=== PATIENT | male | born 1950 | race African-American/Black ===

== ENCOUNTER 2016-09-12 12:56 | Observation (INO) | payer MEDICARE, OTHER ==
[2016-09-12] VITALS (7 sets, daily range): BP systolic 109–180; BP diastolic 67–88; PULSE 66–94; RESP 16–21; TEMP 97.9–98.5; O2SAT 94–97
[~2016-09-12] VITALS: Ht 170.2 cm; Wt 87.5 kg
--- NOTE | 2016-09-12 13:22 | PD ---
HPI Chief Complaint: Chest Pain Time Seen by Provider: 13:20 Travel History International Travel<30 days: No Contact w/Intl Traveler<30days: No Traveled to known affect area: No History of Present Illness HPI 65-year-old male came to the emergency room with history of epigastric pain radiating to his back. Patient seems extremely uncomfortable. He says this happened earlier. He has history of pancreatitis and is on medication for that. He was slightly tachycardic in triage. A 12-lead EKG that was done in triage looked abnormal and hence he was brought in emergently. Blood pressure is within acceptable range. No aggravating or relieving factors identified. He is just uncomfortable constantly. [facility] Past Medical History Narrative Medical List of his past medical, surgical, social and family history is reviewed from the nursing note. Social History Tobacco Use: No Allergies-Medications (Allergen,Severity, Reaction): Coded Allergies: Penicillin (Verified Allergy, Severe, 09/12/16) Comments List of his allergies reviewed from the nursing note. Reported Meds & Prescriptions Reported Meds & Active Scripts Active Reported Creon (Pancrelipase) Unknown Strength Cap Unknown Dose PO TIDPC Narrative Medication List of his home medications reviewed from the nursing note. Review of Systems Except as stated in HPI: all other systems reviewed are Neg Physical Exam Narrative GENERAL: Awake, alert, anxious, significant distress SKIN: Focused skin assessment warm/dry. HEAD: Atraumatic. Normocephalic. EYES: Pupils equal and round. No scleral icterus. No injection or drainage. ENT: No nasal bleeding or discharge. Mucous membranes pink and moist. NECK: Trachea midline. No JVD. CARDIOVASCULAR: Regular rate and rhythm. No murmur appreciated. RESPIRATORY: No accessory muscle use. Clear to auscultation. Breath sounds equal bilaterally. GASTROINTESTINAL: Abdomen soft, non-tender, nondistended. Hepatic and splenic margins not palpable. MUSCULOSKELETAL: No obvious deformities. No clubbing. No cyanosis. No edema. NEUROLOGICAL: Awake and alert. No obvious cranial nerve deficits. Motor grossly within normal limits. Normal speech. PSYCHIATRIC: Appropriate mood and affect; insight and judgment normal. Data Data Last Documented VS Orders Complete Blood Count With Diff (09/12/16 13:03) Chest, Single Ap (09/12/16 13:03) Morphine Inj (Morphine Inj) (09/12/16 13:30) Ondansetron Inj (Zofran Inj) (09/12/16 13:30) Cta Thor Abd Aorta W Iv C W3d (09/12/16 ) Lipase (09/12/16 13:29) Comprehensive Metabolic Panel (09/12/16 13:29) Ckmb (Isoenzyme) Profile (09/12/16 13:40) Troponin I (09/12/16 13:40) CKMB (09/12/16 13:40) CKMB% (09/12/16 13:40) Electrocardiogram (09/12/16 13:08) Iohexol 350 Inj (Omnipaque 350 Inj) (09/12/16 14:52) Labs MDM Medical Decision Making Medical Screen Exam Complete: Yes Emergency Medical Condition: Yes Medical Record Reviewed: Yes Interpretation(s) Twelve-lead EKG was reviewed by me. Normal sinus rhythm, left axis deviation, questionable J-point elevation in V1 and V2, tachycardia. Heart rate of 102 bpm. Differential Diagnosis ACS, acute pancreatitis, aortic dissection Narrative Course 2:54 PM given the pain out of proportion I decided to get a CT aortogram on this patient. I waiting for the CT to be done and resulted. All the blood test results came back otherwise and they're within acceptable range. Patient was given morphine for pain. 3:[address] scan is within normal limit not showing any dissection. Given his chest pain and normal lipase I'll admit him to the chest pain center to be ruled out. Procedures EKG Prior to Arrival: No Diagnosis Primary Impression: Chest pain Qualified Code: R07.9 - Chest pain, unspecified type Admitting Information Admitting Physician Requests: Observation Scripts Naproxen 500 Mg [id number] Mg PO BID 5 Days Ref 0 Prov:Melita Rodriguez 09/13/16 Mary Cronin MD Sep 12, 2016 13:22 Lymphocytes (%) (Auto) 30.4 % Monocytes (%) (Auto) 10.5 % Eosinophils (%) (Auto) 1.8 % Basophils (%) (Auto) 0.2 % Neutrophils # (Auto) 4.0 TH/MM3 Lymphocytes # (Auto) 2.1 TH/MM3 Monocytes # (Auto) 0.7 TH/MM3 Eosinophils # (Auto) 0.1 TH/MM3 Basophils # (Auto) 0.0 TH/MM3 CBC Comment DIFF FINAL Differential Comment Sodium Level 140 MEQ/L Potassium Level 3.9 MEQ/L Chloride Level 108 MEQ/L Carbon Dioxide Level 23.0 MEQ/L Anion Gap 9 MEQ/L Blood Urea Nitrogen 9 MG/DL Creatinine 1.28 MG/DL Estimat Glomerular Filtration 69 ML/MIN Rate Random Glucose 88 MG/DL Calcium Level 8.8 MG/DL Total Bilirubin 0.8 MG/DL Aspartate Amino Transf 21 U/L (AST/SGOT) Alanine Aminotransferase 35 U/L (ALT/SGPT) Alkaline Phosphatase 98 U/L Total Creatine Kinase 103 U/L Creatine Kinase MB 0.6 NG/ML Troponin I LESS THAN 0.02 NG/ML Total Protein 8.0 GM/DL Albumin 4.0 GM/DL Lipase 214 U/L [facility] Medical Decision Making Medical Screen Exam Complete: Yes Emergency Medical Condition: Yes Medical Record Reviewed: Yes Interpretation(s) Twelve-lead EKG was reviewed by me. Normal sinus rhythm, left axis deviation, questionable J-point elevation in V1 and V2, tachycardia. Heart rate of 102 bpm. Differential Diagnosis ACS, acute pancreatitis, aortic dissection Narrative Course 2:54 PM given the pain out of proportion I decided to get a CT aortogram on this patient. I waiting for the CT to be done and resulted. All the blood test results came back otherwise and they're within acceptable range. Patient was given morphine for pain. 3:[address] scan is within normal limit not showing any dissection. Given his chest pain and normal lipase I'll admit him to the chest pain center to be ruled out. Procedures EKG Prior to Arrival: No Diagnosis Primary Impression: Chest pain Qualified Code: R07.9 - Chest pain, unspecified type Admitting Information Admitting Physician Requests: Observation Mary Cronin MD Sep 12, 2016 13:22
[2016-09-12] MEDS ORDERED: CREO3000 PO (13:28)
[2016-09-12] MEDS ORDERED: ONDANSETRON HCL 4 MG/2 ML VIAL IV PUSH ONE (13:30)
[2016-09-12] MEDS ORDERED: MORPHINE SULFATE 8 MG/ML INJ IV PUSH ONE (13:30)
--- NOTE | 2016-09-12 13:30 | RADRPT ---
EXAM DATE/TIME: 09/12/2016 13:24 [facility] COMPARISON: No previous studies available for comparison. INDICATIONS : Chest pain. MEDICAL HISTORY : None. SURGICAL HISTORY : None. ENCOUNTER: Initial ACUITY: 1 day PAIN SCORE: 10/10 LOCATION: Bilateral chest FINDINGS: A single view of the chest demonstrates the lungs to be symmetrically aerated without evidence of mas s, infiltrate or effusion. The cardiomediastinal contours are unremarkable. Osseous structures are intact. Evidence of previous surgery to the cervical spine. CONCLUSION: Normal examination for a patient of this age. Regulo Chavarria MD on September 12, 2016 at 13:27 Board Certified Radiologist. This report was verified electronically.
[2016-09-12 13:51] LABS: BASOPHIL % 0.2 % (0.0-2.0); EOSINOPHIL # 0.1 TH/MM3 (0-0.4); EOSINOPHIL % 1.8 % (0.0-4.0); HEMATOCRIT 48.9 % (39.0-51.0); HEMO FLAGS DIFF FINAL; LYMPH % 30.4 % (9.0-44.0); LYMPHOCYTE # 2.1 TH/MM3 (1.0-4.8); MEAN CELL VOLUME 81.7 FL (80.0-100.0); MEAN CORPUSCULAR HGB CONC 33.1 % (32.0-36.0); MONO % 10.5 % (0.0-8.0); NEUT % 57.1 % (16.0-70.0); PLATELET COUNT 217 TH/MM3 (150-450); RED BLOOD COUNT 5.99 MIL/MM3 (4.50-5.90); RED CELL DISTRIBUTION WIDTH 15.7 % (11.6-17.2)
[2016-09-12 14:06] LABS: ALT (GPT) 35 U/L (12-78); ANION GAP 9 MEQ/L (5-15); AST (GOT) 21 U/L (15-37); BLOOD UREA NITROGEN 9 MG/DL (7-18); CHLORIDE 108 MEQ/L (98-107); GLOMERULAR FILTRATION RATE 69 ML/MIN (>89); POTASSIUM 3.9 MEQ/L (3.5-5.1); SODIUM (NA) 140 MEQ/L (136-145)
[2016-09-12 14:09] LABS: ALKALINE PHOSPHATASE 98 U/L (45-117); CREATINE KINASE 103 U/L (39-308); TOTAL BILIRUBIN ADULT 0.8 MG/DL (0.2-1.0)
[2016-09-12 14:22] LABS: CKMB 0.6 NG/ML (0.5-3.6)
[2016-09-12] MEDS ORDERED: IOHEXOL 350 MG/ML 10 ML VIAL (for RAD DIAG) IV ONE (14:52)
--- NOTE | 2016-09-12 15:43 | RADRPT ---
EXAM DATE/TIME: 09/12/2016 14:16 [facility] COMPARISON: No previous studies available for comparison. INDICATIONS : Substernal chest pain and dizziness today. IV CONTRAST: 97 cc Omnipaque 350 (iohexol) IV RADIATION DOSE: 8.7 CTDIvol (mGy) MEDICAL HISTORY : Pancreatitis. SURGICAL HISTORY : back surgery ENCOUNTER: Initial ACUITY: 1 day PAIN SCALE: 6/10 LOCATION: substernal chest TECHNIQUE: Volumetric scanning was performed using a multi-row detector CT scanner. The data was post processed with a variety of visualization algorithms including full volume maximum intensity projection, multi -planar sliding thin slab reformation, curved planar reformation, and surface rendering techniques. Using automated exposure control and adjustment of the mA and/or kV according to patient size, radiat ion dose was kept as low as reasonably achievable to obtain optimal diagnostic quality images. DICOM format image data is available electronically for review and comparison. FINDINGS: LUNGS: Ill-defined patchy groundglass opacities in the superior segment of the left lower lobe likely reflec t volume loss. No significant focal parenchymal abnormality. No significant pleural effusion or pneum othorax. MEDIASTINUM: No abnormally enlarged lymph nodes by CT criteria. No axillary or hilar abnormalities are identified. The heart is grossly unremarkable without significant pericardial effusion. Central pulmonary arteri es are patent. ABDOMEN: The liver and spleen are free of focal defects. The gallbladder and pancreas demonstrate no abnormali ty. The adrenal glands are normal. The kidneys demonstrate no evidence of solid renal mass or hydrone phrosis. Subcentimeter cystic lesion in the superior pole the left kidney is too small to characteriz e. No free fluid or abdominal masses are identified. No para-aortic adenopathy is seen. PELVIS: No evidence of free fluid or pelvic mass. No abnormally enlarged inguinal or retroperitoneal lymph no alfredo are present. The bladder is unremarkable. Prostate is nonspecifically enlarged. THORACIC AORTA: The thoracic aortic root is minimally ectatic measuring up to 3.6 cm in diameter with normal branchin g of the great vessels. The proximal arch vessels are patent. Descending thoracic aorta is normal in caliber measuring up to 2.7 cm. In caliber measuring up to 3.6 cm There is no evidence of aneurysm or dissection. ABDOMINAL AORTA: The abdominal aorta is nonaneurysmal without evidence for dissection. Mild distal aortic stenosis se condary to concentric mixed plaque. The renal arteries are patent bilaterally. The proximal celiac a nd superior mesenteric arteries are patent and normal in diameter. PELVIC VESSELS: The internal iliac and external iliac vessels are patent without aneurysm or stenosis. CONCLUSION: 1. No evidence for aortic aneurysm or dissection as questioned. 2. Ill-defined patchy groundglass opacities in the superior segment of the left lower lobe likely ref lect volume loss. 3. Essentially unremarkable CT examination of the chest, abdomen and pelvis. Geraldo Canas MD on September 12, 2016 at 15:02 Board Certified Radiologist. This report was verified electronically.
[2016-09-12] MEDS ORDERED: ASPIRIN 81 MG CHEW TAB CHEW ONE (16:00)
[2016-09-12] MEDS ORDERED: ONDANSETRON HCL 4 MG/2 ML VIAL IV PRN (16:30)
[2016-09-12] MEDS ORDERED: ACETAMINOPHEN 500 MG CPLT PO PRN (16:30)
[2016-09-12] MEDS ORDERED: SODIUM CHLORIDE 0.9% FLUSH 10 ML FLUSH IV FLUSH PRN (16:30)
[2016-09-12] MEDS ORDERED: NITROGLYCERIN 0.4 MG SL 25 TABS/BTL SL PRN (16:30)
--- NOTE | 2016-09-12 16:53 | HHI.HP ---
HPI Primary Care Physician Primary Care Physician in [place] Chief Complaint Chest pain History of Present Illness 65-year-old male history of chronic pancreatitis presents to emergency room for further evaluation of epigastric pain. Onset approximately 12 PM. While walking to kitchen he developed sudden epigastric pain with radiation to his right side into his back. Severity 10/10. Epigastric pain described as a pressure and pulling pain. Pain radiating to right side described as burning and radiation of pain to back was sharp. He lost consciousness and when he woke up his left hip was hurting. No dizziness prior to loss of consciousness. Epigastric pain persisted once he regained consciousness although not as severe. He called his nephew to bring him to the emergency room. No associated symptoms of nausea, vomiting, or diaphoresis. States it's hard to breathe but does not necessarily hurt to breathe. Twisting makes pain worse. Laying still makes pain better. No particular position makes pain better or worse. No fever, chills, cough, recent illness, or sputum production. Flew in Monday from [place] for his aunt's from [place]. Review of Systems General: No fatigue,weakness, fever, chills, or recent illness. Has been in his general state of health. He lives in [facility] and is visiting due to his aunt's . Plans to fly home September 21. His primary care provider is in [facility]. HEENT: No TITUS, no vision changes, no nasal congestion or drainage, no dysphasia CV: As stated above. Continues to have epigastric pain as stated above currently rated 2/10. RESP: No SOB, cough, wheeze, recent URI, or history of asthma. GI: No nausea, vomiting. Endorses constipation and unintentional weight gain over the past year. States he is always hungry. Last bowel movement 3 days ago. Follows with a pumper gager apprentice in [place]. : No dysuria, urgency, frequency, or history of kidney stones EXT: No lower leg edema, no paraesthesias MS: No discomfort or change in ROM NEURO: History of C4 neck surgery with plate. No difficulty with balance, LOC, motor/sensory deficits PSYCH: No anxiety, depression. SKIN: No rashes, no concerning lesions Past Family Social History Allergies: Coded Allergies: Penicillin (Verified Allergy, Severe, 09/12/16) Past Medical History Chronic pancreatitis, cervical stenosis Past Surgical History 2 rotator cuff repair, cervical discectomy Reported Medications Active Reported Creon (Pancrelipase) Unknown Strength Cap Unknown Dose PO TIDPC Active Ordered Medications Current Medications Medications (Trade) Dose Ordered Sig/Sachin Route Start Time Stop Time Status Last Admin (NS Flush) 2 ml UNSCH PRN IV FLUSH 09/12/16 16:30 (NS Flush) 2 ml BID IV FLUSH 09/12/16 21:00 (Tylenol) 500 mg Q4H PRN PO 09/12/16 16:30 (Zofran Inj) 4 mg Q6H PRN IV 09/12/16 16:30 (Nitrostat Sl) 0.4 mg Q5M PRN SL 09/12/16 16:30 (Aspirin) 325 mg DAILY PO 09/13/16 09:00 Family History Noncontributory for early onset cardiovascular disease Social History No known diabetes, hypertension, hyperlipidemia, or personal coronary artery disease. Currently smoking 1 pack weekly. Quit drinking over 2 months ago at the direction of his pumper gager apprentice due to pancreatitis. Denies any drug use. Endorses an active lifestyle walking daily. With exertion he does not develop any chest discomfort. Past cardiac testing Exercise stress test one year ago unremarkable. Physical Exam Vital Signs Vital Signs Date Time Temp Pulse Resp B/P Pulse Ox O2 Delivery O2 Flow Rate FiO2 09/12/16 13:27 94 16 161/88 96 09/12/16 12:58 98.3 89 21 180/81 97 Physical Exam GENERAL: Alert WN, WD, NAD, pleasant, male HEAD: NC, AT NECK: Supple, no masses, trachea midline CV: RRR, without murmur, rub, gallop, no JVD, S1-S2 no S3-S4. No carotid or femoral bruits. Chest wall nontender on palpation. RESP: Clear lungs throughout bilateral, no crackles, wheeze, rhonchi, symmetrical chest rise, nonlabored, able to speak in full sentences ABD: Epigastric area tender with palpation. Soft, ND, no masses, positive bowel tones BACK: No CVAT, no scoliosis EXT: Pulses +24, no dependent edema MS: Normal tone 4 extremities, nontender, no obvious deformities, decreased range of motion of neck moving to right side. NEURO: CN II through CN XII grossly intact, motor strength 5/5, gait WNL PSYCH: A+O 3, pleasant affect, appropriate speech, appropriate mood and affect , insight and judgment SKIN: Normal turgor, normal texture, brisk cap refill, even hair distribution, surgical scar posterior neck Laboratory Laboratory Tests Test 09/12/16 13:40 White Blood Count 7.0 Red Blood Count 5.99 Hemoglobin 16.2 Hematocrit 48.9 Mean Corpuscular Volume 81.7 Mean Corpuscular Hemoglobin 27.0 Mean Corpuscular Hemoglobin 33.1 Concent Red Cell Distribution Width 15.7 Platelet Count 217 Mean Platelet Volume 8.3 Neutrophils (%) (Auto) 57.1 Lymphocytes (%) (Auto) 30.4 Monocytes (%) (Auto) 10.5 Eosinophils (%) (Auto) 1.8 Basophils (%) (Auto) 0.2 Neutrophils # (Auto) 4.0 Lymphocytes # (Auto) 2.1 Monocytes # (Auto) 0.7 Eosinophils # (Auto) 0.1 Basophils # (Auto) 0.0 CBC Comment DIFF FINAL Differential Comment Sodium Level 140 Potassium Level 3.9 Chloride Level 108 Carbon Dioxide Level 23.0 Anion Gap 9 Blood Urea Nitrogen 9 Creatinine 1.28 Estimat Glomerular Filtration 69 Rate Random Glucose 88 Calcium Level 8.8 Total Bilirubin 0.8 Aspartate Amino Transf 21 (AST/SGOT) Alanine Aminotransferase 35 (ALT/SGPT) Alkaline Phosphatase 98 Total Creatine Kinase 103 Creatine Kinase MB 0.6 Troponin I LESS THAN 0.02 Total Protein 8.0 Albumin 4.0 Lipase 214 Result Diagram: 09/12/16 1340 09/12/16 1340 Imaging Last Impressions Chest X-Ray 09/12/16 1303 Signed Impressions: Service Date/Time: Monday, September 12, 2016 13:24 - CONCLUSION: Normal examination for a patient of this age. Regulo Chavarria MD Aorta CTA 09/12/16 0000 Signed Impressions: Service Date/Time: Monday, September 12, 2016 14:16 - CONCLUSION: 1. No evidence for aortic aneurysm or dissection as questioned. 2. Ill-defined patchy groundglass opacities in the superior segment of the left lower lobe likely reflect volume loss. 3. Essentially unremarkable CT examination of the chest, abdomen and pelvis. Geraldo Canas MD Course EKG First EKG normal sinus rhythm, left axis deviation, Q waves in septal leads, J- point elevation V2 Assessment and Plan Assessment and Plan #1 Atypical Chest painadmitted to chest pain center. Will rule out with 3 sets of EKGs, cardiac enzymes, monitor overnight. Will be seen and evaluated by Dr. Dajuan Espinoza. Further disposition to follow in a.m. #2 Chronic pancreatitiscontinue Creon #3 Epigastric painlipase within normal limits, CT aorta no aneurysm or dissection. #4 Tobacco usestrongly encouraged and stressed the importance of tobacco sensation. Discussed and counseled patient to quit smoking in length #5 ConstipationMiraLAX powder 1 dose Melita Rodriguez [facility] Sep 12, 2016 16:53
[2016-09-12 17:54] LABS: CREATINE KINASE 98 U/L (39-308)
[2016-09-12] MEDS ORDERED: POLYETHYLENE GLYCOL 17 GM PKG PO ONE (18:00)
[2016-09-12] MEDS: SODIUM CHLORIDE 0.9% FLUSH 10 ML FLUSH IV FLUSH SCH (20:35)
[2016-09-12 21:51] LABS: CREATINE KINASE 101 U/L (39-308)
[2016-09-12 22:03] LABS: CKMB 0.9 NG/ML (0.5-3.6)
[2016-09-13 00:03] VITALS: PULSE 78
[2016-09-13 04:00] VITALS: PULSE 78
[2016-09-13 04:15] VITALS: BP 129/70; PULSE 70; RESP 18; TEMP 98; O2SAT 97
[2016-09-13 07:42] VITALS: BP 128/71; PULSE 68; RESP 20; TEMP 98.5; O2SAT 98
[2016-09-13 08:07] VITALS: O2SAT 96
[2016-09-13] MEDS ORDERED: ASPIRIN 81 MG CHEW TAB CHEW SCH (09:00)
[2016-09-13] MEDS ORDERED: ASPIRIN 325 MG TAB PO SCH (09:00)
[2016-09-13] MEDS ORDERED: KETOROLAC TROMETHAMINE 30 MG/ML (IVP) VIAL IV PUSH ONE (11:30)
[2016-09-13] MEDS: SODIUM CHLORIDE 0.9% FLUSH 10 ML FLUSH IV FLUSH SCH (11:59)
[2016-09-13] MEDS ORDERED: REGADENOSON INJ 0.4 MG/5 ML SYR ONE (13:19)
--- NOTE | 2016-09-13 13:22 | EKG ---
Date Performed: 09/12/2016 Time Performed: 18:15:59 PTAGE: 65 years EKG: Sinus rhythm POSSIBLE LEFT ATRIAL ENLARGEMENT MARKED LEFT AXIS DEVIATION POSSIBLE RIGHT VENTRICULAR CONDUCTION DE LAY SEPTAL MYOCARDIAL INFARCTION ABNORMAL ECG NO PREVIOUS TRACING DOCTOR: Mejia Palomares Interpretating Date/Time 09/13/2016 13:16:30
--- NOTE | 2016-09-13 13:23 | EKG ---
Date Performed: 09/12/2016 Time Performed: 16:56:16 PTAGE: 65 years EKG: Sinus rhythm POSSIBLE LEFT ATRIAL ENLARGEMENT POSSIBLE LEFT VENTRICULAR HYPERTROPHY POSSIBLE ANTEROSEPTAL MYOCARD IAL INFARCTION ABNORMAL ECG PREVIOUS TRACING : 09/12/2016 13.24 Compared to prior tracing no significant change DOCTOR: Mejia Palomares Interpretating Date/Time 09/13/2016 13:17:31
--- NOTE | 2016-09-13 13:30 | EKG ---
Date Performed: 09/12/2016 Time Performed: 13:08:57 PTAGE: 65 years EKG: SINUS TACHYCARDIA POSSIBLE LEFT ATRIAL ENLARGEMENT POSSIBLE RIGHT VENTRICULAR CONDUCTION DE LAY SEPTAL MYOCARDIAL INFARCTION ABNORMAL ECG PREVIOUS TRACING : 04/23/2003 22.23 compared with previous EKG sinus tachycardia is new DOCTOR: Mejia Palomares Interpretating Date/Time 09/13/2016 13:22:59
--- NOTE | 2016-09-13 15:34 | RADRPT ---
EXAM DATE/TIME: 09/13/2016 12:15 [facility] COMPARISON: No previous studies available for comparison. INDICATIONS : Epigastric pain with dyspnea and chest pressure. Angina. DOSE: 27.0 mCi Tc99m Myoview at stress. 8.4 mCi Tc99m Myoview at rest. 0.4 mg Lexiscan STRESS SYMPTOMS: Dyspnea and lightheaded EJECTION FRACTION: 68% MEDICAL HISTORY : Pancreatitis. SURGICAL HISTORY : Rotator cuff, right. Fusion, cervical. ENCOUNTER: Initial ACUITY: 1 day PAIN SCALE: 3/10 LOCATION: Right upper quadrant TECHNIQUE: The patient underwent pharmacologic stress with infusion of prescribed dose. Continuous ECG tracing was monitored during stress. Gated SPECT imaging was performed after stress and conventional SPECT i maging was performed at rest. The examination was performed on a SPECT/CT scanner, both attenuation and non-corrected datasets were reviewed. FINDINGS: DISTRIBUTION: The maximum perfused segment at stress is in the anterolateral wall. PERFUSION STUDY: The pattern of perfusion at stress is within normal limits. GATED STUDY: There is intact wall motion and thickening without hypokinetic or dyskinetic segments. CONCLUSION: 1. No reversibility to suggest ischemia. 2. Normal wall motion with ejection fraction 68% RISK CATEGORY: Low (<1% Annual Mortality Rate) Harjeet Peralta MD on September 13, 2016 at 15:30 Board Certified Radiologist. This report was verified electronically.
--- NOTE | 2016-09-13 15:54 | HHI.DCPOC ---
Discharge Care Plan Diagnosis: (1) Atypical chest pain (2) Chronic pancreatitis (3) Tobacco abuse Goals to Promote Your Health * To prevent worsening of your condition and complications * To maintain your health at the optimal level Directions to Meet Your Goals Take your medications as prescribed Follow your dietary instruction Follow activity as directed Keep your appointments as scheduled Take your immunizations and boosters as scheduled If your symptoms worsen call your PCP, if no PCP go to Urgent Care Center or Emergency Room Smoking is Dangerous to Your Health. Avoid second hand smoke Call the 24-hour hour crisis hotline for domestic abuse at Melita RodriguezP Sep 13, 2016 15:54
[2016-09-13] MEDS ORDERED: NAPR500T PO (15:56)
[2016-09-13 16:00] VITALS: BP 125/79; PULSE 71; RESP 18; TEMP 98.5; O2SAT 95
--- NOTE | 2016-09-14 07:29 | EKG ---
Date Performed: 09/12/2016 Time Performed: 21:56:12 PTAGE: 65 years EKG: Sinus rhythm POSSIBLE LEFT ATRIAL ENLARGEMENT POSSIBLE RIGHT VENTRICULAR CONDUCTION DELAY POSSIBLE LEFT VENTRICUL AR HYPERTROPHY POSSIBLE ANTEROSEPTAL MYOCARDIAL INFARCTION ABNORMAL ECG PREVIOUS TRACING : 09/12/2016 18.15 Since previous tracing, no significant change noted DOCTOR: Dajuan Espinoza Interpretating Date/Time 09/14/2016 07:27:09
--- NOTE | 2016-09-14 07:42 | TR ---
Date Performed: 09/13/2016 Time Performed: 13:22:07 DOCTOR: Dajuan Espinoza DRUG LIST: CLINICAL HISTORY: REASON FOR TEST: REASON FOR ENDING: OBSERVATION: CONCLUSION: Lexiscan stress test was performed under standard four minute protocol. Radionuclid e was injected one minute prior to ending the test. No electrocardiographic abormalities were present to suggest ischemia. Nuclear imaging and interpretation are pending. COMMENTS: Lexiscan stress test was performed under standard four minute protocol. Radionuclide was injected one minute prior to ending the test. No electrocardiographic abormalities were present t o suggest ischemia. Nuclear imaging and interpretation are pending.
== END 2016-09-13 16:35 | disposition home or self-care (01) ==
LOC: NEPC 12:56 → NEDA 15:50 → NEPGCP 16:19 → UNDOADMOB 16:19
PROVIDERS: ADMIT Internal Medicine Cardiovascular Disease; ATTEND Internal Medicine Cardiovascular Disease
DX: R07.89 Other chest pain (principal); K86.1 Other chronic pancreatitis; K59.00 Constipation, unspecified; R00.0 Tachycardia, unspecified; R94.31 Abnormal electrocardiogram [ECG] [EKG]; R42 Dizziness and giddiness; R06.00 Dyspnea, unspecified; R55 Syncope and collapse; I20.9 Angina pectoris, unspecified; M48.02 Spinal stenosis, cervical region; F17.200 Nicotine dependence, unspecified, uncomplicated; Z98.1 Arthrodesis status
CPT/HCPCS: 71010; 71275; 74174; 78452; 80053; 82550; 82552; 83690; 84484; 85025; 85379; 93005; 93017; 96374; 96375; 99285; A9502; G0378; J1885; J2270; J2405; J2785; Q9967